=== PATIENT | male | born 1980 | race Caucasian/White ===

== ENCOUNTER 2017-09-19 21:27 | Emergency (ER) | payer SELFPAY ==
[~2017-09-19] VITALS: Ht 167.6 cm; Wt 76.4 kg
[2017-09-19 21:32] VITALS: BP 125/82; TEMP 98.7
[2017-09-19] MEDS ORDERED: FLEXERIL 1010 MG/TAB PO (22:27)
[2017-09-19] MEDS ORDERED: PREDNISONE20 MG PO (22:27)
[2017-09-19 23:02] VITALS: PULSE 70
== END 2017-09-19 23:06 | disposition home or self-care (01) ==
LOC: COL.ER 21:27
DX: M54.6 Pain in thoracic spine (principal); F17.210 Nicotine dependence, cigarettes, uncomplicated
CPT/HCPCS: J7512